=== PATIENT | female | born 1975 | race African-American/Black ===

== ENCOUNTER 2016-08-13 07:54 | Emergency (ER) | payer SELFPAY ==
[2016-08-13] MEDS ORDERED: Phenergan/Codeine 10-6.25mg/5ml UDCUP ONE (09:04)
[2016-08-13] MEDS ORDERED: HYDROcodone/Acetaminophen 10/325 mg Tablet ONE (09:04)
[2016-08-13] MEDS ORDERED: methylPREDNISolone Sod Succ/PF 125 MG/2 ML VIAL ONE (09:05)
[2016-08-13] MEDS ORDERED: AMOXicillin 250 MG CAP ONE (09:05)
[2016-08-13] MEDS ORDERED: Naproxen 500 MG TAB ONE (09:05)
[2016-08-13] MEDS ORDERED: Dexamethasone 10 MG/ML VIAL ONE (09:05)
[2016-08-13] MEDS ORDERED: HYDROcodone/Acetaminophen 10/325 mg Tablet PO SCH (09:15)
[2016-08-13] MEDS ORDERED: Phenergan/Codeine 10-6.25mg/5ml UDCUP PO SCH (09:15)
[2016-08-13] MEDS ORDERED: Dexamethasone 10 MG/ML VIAL SLOW IVP SCH (09:15)
[2016-08-13] MEDS ORDERED: AMOXicillin 250 MG CAP PO SCH (09:15)
[2016-08-13] MEDS ORDERED: methylPREDNISolone Sod Succ/PF 125 MG/2 ML VIAL IVP SCH (09:15)
[2016-08-13] MEDS ORDERED: Sodium Chloride 0.9% 1,000 ML IV SCH (09:15)
[2016-08-13] MEDS ORDERED: Naproxen 500 MG TAB PO SCH (09:15)
[2016-08-13] MEDS ORDERED: Sodium Chloride 0.9% 1,000 ML BAG ONE (09:25)
[2016-08-13 09:54] LABS: Hemoglobin 11.6 g/dL (12.0-16.0); Mean Corpuscular HGB CONC 33.5 g/dL (32.0-36.0); Mean Corpuscular Hemoglobin 28.4 pg (27.0-31.0); Mean Corpuscular Volume 84.8 fl (81.0-99.0); Mean Platelet Volume 7.2 fL (7.4-10.4); Platelet Count 395 thou/uL (130-400); RBC Distribution Width 13.4 % (11.5-14.5); White Blood Cell (WBC) Count 9.1 thou/uL (4.8-10.8)
[2016-08-13 09:55] LABS: Lymphocytes 21 % (21-51); Monocytes 4 % (0-10); Neutrophil 75 % (42-75)
[2016-08-13 09:56] LABS: ALT (SGPT) 10 U/L (0-55); AST (SGOT) 17 U/L (5-34); Albumin 4.1 g/dL (3.5-5.0); Alkaline Phosphatase 82 U/L (40-150); Anion Gap 15 mmol/L (10-20); BUN (Urea Nitrogen) 11 mg/dL (7.0-18.7); Bilirubin, Total Less than 0.3 mg/dL (0.2-1.2); Calc. Creatinine Clearance 0 mL/min (70-130); Calcium 9.4 mg/dL (7.8-10.44); Carbon Dioxide 23 mmol/L (22-29); Chloride 104 mmol/L (98-107); Estimated GFR-MDRD Greater than 90; Globulin 3.6 g/dL (2.4-3.5); Glucose 82 mg/dL (70-105); Potassium 3.9 mmol/L (3.5-5.1); Protein, Total 7.7 g/dL (6.0-8.3); Sodium 138 mmol/L (136-145)
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
== END 2016-08-13 11:02 | disposition home or self-care (01) ==
LOC: MADERS 07:54
DX: J70.5 Respiratory conditions due to smoke inhalation (principal)
CPT/HCPCS: 36415; 71020; 80053; 85025; 86140; 96361; 96374; 96375; J1100; J2930; J7050

== ENCOUNTER 2017-01-19 00:16 | Emergency (ER) | payer SELFPAY ==
[2017-01-19] MEDS ORDERED: Ketorolac Tromethamine 60 MG/2 ML VIAL ONE (00:50)
[2017-01-19] MEDS ORDERED: HYDROcodone/Acetaminophen 5/325 mg Tablet ONE (00:50)
[2017-01-19 01:10] LABS: #Eosinphils 0.1 thou/uL (0.0-0.7); #Lymphocytes 2.2 thou/uL (1.20-3.40); #Monocytes 0.6 thou/uL (0.11-0.59); #Neutrophils 5.4 thou/uL (1.40-6.50); %Basophils 0.5 % (0.0-1.0); %Eosinophils 1.2 % (0.0-10.0); %Lymphocytes 26.2 % (21.0-51.0); %Monocytes 7.3 % (0.0-10.0); %Neutrophils 64.9 % (42.0-75.0); Hemoglobin 9.8 g/dL (12.0-16.0); Mean Corpuscular HGB CONC 32.7 g/dL (32.0-36.0); Mean Corpuscular Hemoglobin 26.9 pg (27.0-31.0); Mean Corpuscular Volume 82.3 fl (81.0-99.0); Mean Platelet Volume 6.7 fL (7.4-10.4); Platelet Count 320 thou/uL (130-400); RBC Distribution Width 14.2 % (11.5-14.5); Red Blood Cell (RBC) Count 3.64 mill/uL (4.20-5.40); White Blood Cell (WBC) Count 8.3 thou/uL (4.8-10.8)
[2017-01-19 01:16] LABS: Clarity Clear (Clear)
[2017-01-19 01:17] LABS: Bacteria/HPF Rare-Few HPF (None Seen); Bilirubin Negative (Negative); Blood, Urine Trace (Negative); Glucose, Urine (Dipstick) Negative (Negative); Leukocyte Negative (Negative); Nitrite Negative (Negative); Protein, Urine (Dipstick) Negative (Neg-Trace); WBC/HPF 0-3 HPF (0-3); pH, Urine 6.5 (5.0-9.0)
[2017-01-19 01:27] LABS: ALT (SGPT) 10 U/L (8-55); AST (SGOT) 15 U/L (5-34); Albumin 3.6 g/dL (3.5-5.0); Alkaline Phosphatase 76 U/L (40-150); Anion Gap 12 mmol/L (10-20); BUN (Urea Nitrogen) 17 mg/dL (7.0-18.7); Bilirubin, Total 0.3 mg/dL (0.2-1.2); Calc. Creatinine Clearance 0 mL/min (70-130); Calcium 8.9 mg/dL (7.8-10.44); Carbon Dioxide 23 mmol/L (22-29); Chloride 107 mmol/L (98-107); Estimated GFR-MDRD Greater than 90; Globulin 3.5 g/dL (2.4-3.5); Glucose 101 mg/dL (70-105); Protein, Total 7.1 g/dL (6.0-8.3); Sodium 138 mmol/L (136-145)
--- NOTE | 2017-01-19 07:46 | CT ---
PRELIMINARY REPORT/[facility]/EMERGENCY AFTER HOURS PROCEDURE: EXAM: CT Abdomen and Pelvis Without Intravenous Contrast CLINICAL HISTORY: 41 years old, female; Pain; Abdominal pain; Other: Lt side pain; Patient HX: Pt complaining of lt si de pain TECHNIQUE: Axial computed tomography images of the abdomen and pelvis without intravenous contrast. COMPARISON: No relevant prior studies available. FINDINGS: Lower thorax: No acute findings. ABDOMEN: Liver: Simple left hepatic lobe cyst. Gallbladder and bile ducts: Normal. Pancreas: Normal. Spleen: Normal. Adrenals: Normal. Kidneys and ureters: Normal. Stomach and bowel: Normal. Appendix: Appendix is normal. PELVIS: Bladder: Normal. Reproductive: Uterus appears mildly enlarged, without definite focal nodules or masses. ABDOMEN and PELVIS: Intraperitoneal space: Normal. No free air. No significant fluid collection. Bones/joints: No acute fracture. No dislocation. Soft tissues: Normal. Vasculature: Phleboliths within the pelvis. No abdominal aortic aneurysm. Lymph nodes: Normal. IMPRESSION: 1. No acute abdominal or pelvic abnormality. 2. Uterus appears mildly enlarged, without definite focal nodules or masses. Consider further evalua tion with sonography. 3. Incidental/non-acute findings are described above. Thank you for allowing us to participate in the care of your patient. Dictated and Authenticated by: Alireza Clark MD 01/19/2017 2:16 AM Central Time ([place] \T\ [place]) FINAL REPORT ABDOMEN CT WITHOUT CONTRAST PELVIC CT WITHOUT CONTRAST: Date: 01/19/17 HISTORY: Left-sided pain. Evaluate for renal calculi. COMPARISON: None. TECHNIQUE: Abdomen and pelvis CT performed without IV or oral contrast. Coronal reformatted images submitted fo r interpretation. FINDINGS: This report is in agreement with the preliminary report by Tat[facility]. There is no evidence of obstructive uropathy. Normal caliber appendix is identified. Uterus is enlarged and has a heterogeneous appeara nce. Correlate for fibroids. Pelvic ultrasound can be performed on a nonemergent basis. POS: [facility]
== END 2017-01-19 02:35 | disposition home or self-care (01) ==
LOC: MADERS 00:16
DX: D64.9 Anemia, unspecified (principal); R10.9 Unspecified abdominal pain
CPT/HCPCS: 36415; 74176; 80053; 81003; 81015; 85025; 96372; J1885

== ENCOUNTER 2019-02-15 05:20 | Emergency (ER) | payer SELFPAY ==
[2019-02-15] MEDS ORDERED: Ketorolac Tromethamine 30 MG/ML VIAL ONE (05:46)
== END 2019-02-15 05:58 | disposition home or self-care (01) ==
LOC: MADERS 05:20
DX: M10.9 Gout, unspecified (principal)
CPT/HCPCS: 96372; 99283; J1885

== ENCOUNTER 2023-06-24 06:20 | Emergency (ER) | payer SELFPAY | END 2023-06-24 07:24 | disposition home or self-care (01) | LOC: MADERS 06:20 | DX: J20.9 Acute bronchitis, unspecified (principal); J06.9 Acute upper respiratory infection, unspecified; I10 Essential (primary) hypertension; Z79.899 Other long term (current) drug therapy | CPT/HCPCS: 87804; 99283 ==